=== PATIENT | male | born 1955 | race Caucasian/White ===

== ENCOUNTER 2018-09-04 09:50 | Inpatient (IN) | payer OTHER ==
[2018-09-03 22:15] VITALS: BP 113/69; PULSE 79; RESP 18
[~2018-09-04] VITALS: Ht 167.6 cm; Wt 84.6 kg
[2018-09-04] MEDS ORDERED: NITROGLYCERIN 2% 1 GM OINT PKT TD STA (09:55)
[2018-09-04] MEDS ORDERED: ASPIRIN 81 MG TAB PO STA (09:55)
[2018-09-04] MEDS: NITROGLYCERIN (SL) 0.4 MG TAB SL PRN (10:31)
--- NOTE | 2018-09-04 11:35 | ERD ---
ER Documentation Chief Complaint Chief Complaint INTERMITTENT CP X 2 DAYS WITH EKG CHANGES AT MD OFFICE HPI Patient is a 63-year-old male with previous heart attack who presents with chest pain. He said that it started yesterday afternoon after he was vacuuming. He feels it across his chest. It felt similar to previous heart attack. He went to the [facility] today and they sent him by ambulance to the ER for further work-up and admission. Upon review of old medical records this is the patient's first visit to the emergency department. ROS All systems reviewed and are negative except as per history of present illness. Allergies Allergies: Coded Allergies: No Known Allergy (Unverified , 09/04/18) PMhx/Soc History of Surgery: Yes (stent, hernia, abd) Anesthesia Reaction: No Hx Neurological Disorder: No Hx Respiratory Disorders: No Hx Cardiac Disorders: Yes (HTN) Hx Psychiatric Problems: Yes (anxiety) Hx Miscellaneous Medical Probl: No Hx Alcohol Use: Yes Hx Substance Use: Yes (marijuanna) Hx Tobacco Use: Yes Smoking Status: Former smoker FmHx Family History: No coronary disease Physical Exam Vitals Vital Signs Date Temp Pulse Resp B/P (MAP) Pulse Ox O2 O2 Flow FiO2 Time Delivery Rate 09/04/18 Nasal 3 10:29 Cannula 09/04/18 97.9 81 16 147/71 98 09:52 (96) Physical Exam Const: No acute distress Head: Atraumatic Eyes: Normal Conjunctiva ENT: Normal External Ears, Nose and Mouth. Neck: Full range of motion. No meningismus. Resp: Clear to auscultation bilaterally Cardio: Regular rate and rhythm, no murmurs Abd: Soft, non tender, non distended. Normal bowel sounds Skin: No petechiae or rashes Back: No midline or flank tenderness Ext: No cyanosis, or edema Neur: Awake and alert Psych: Normal Mood and Affect Result Diagram: 09/04/18 1004 09/04/18 1004 Results 24 hrs Laboratory Tests Test 09/04/18 10:04 White Blood Count 6.8 10^3/ul Red Blood Count 4.12 10^6/ul Hemoglobin 13.2 g/dl Hematocrit 38.7 % Mean Corpuscular Volume 93.9 fl Mean Corpuscular Hemoglobin 32.0 pg Mean Corpuscular Hemoglobin Concent 34.1 g/dl Red Cell Distribution Width 12.3 % Platelet Count 168 10^3/UL Mean Platelet Volume 9.6 fl Immature Granulocytes % 0.100 % Neutrophils % 58.5 % Lymphocytes % 27.3 % Monocytes % 11.7 % Eosinophils % 2.1 % Basophils % 0.3 % Nucleated Red Blood Cells % 0.0 /100WBC Immature Granulocytes # 0.010 10^3/ul Neutrophils # 4.0 10^3/ul Lymphocytes # 1.9 10^3/ul Monocytes # 0.8 10^3/ul Eosinophils # 0.1 10^3/ul Basophils # 0.0 10^3/ul Nucleated Red Blood Cells # 0.0 10^3/ul Sodium Level 138 mmol/L Potassium Level 4.8 mmol/L Chloride Level 103 mmol/L Carbon Dioxide Level 23 mmol/L Anion Gap 12 Blood Urea Nitrogen 47 mg/dl Creatinine 3.06 mg/dl Est Glomerular Filtrat Rate mL/min 21 mL/min Glucose Level 149 mg/dl Calcium Level 10.3 mg/dl Troponin I < 0.012 ng/ml Current Medications Medications Dose Sig/Noreen Start Time Status Last (Trade) Ordered Route PRN Stop Time Admin Dose Reason Admin Aspirin 162 mg ONCE STAT 09/04/18 DC 09/04/18 (Aspirin) PO 09:55 10:31 09/04/18 09:57 1 inch ONCE STAT 09/04/18 DC 09/04/18 Nitroglycerin TD 09:55 10:34 09/04/18 09:57 (Nitroglyceri n 2% Oint) 1 tab Q5M UP TO 3 09/04/18 09/04/18 Nitroglycerin DOSES PRN 10:00 10:31 SL .CHEST (Nitroglyceri PAIN n (Sl Tab) 0.4 Mg) Ondansetron 4 mg ER BRIDGE 09/04/18 HCl (Zofran PRN IV 12:00 Inj) NAUSEA/VOMITI 09/05/18 11:59 NG 650 mg ER BRIDGE 09/04/18 Acetaminophen PRN PO 12:00 (Tylenol .MILD PAIN 09/05/18 11:59 Tab) 1-3 OR TEMP Procedures/MDM EKG #1 read by me: Rate/Rhythm: Regular rate and rhythm at a normal rate Intervals: Normal Impression: No evidence of ischemia or arrhythmia EKG #2 read by me: Rate/Rhythm: Regular rate and rhythm at a normal rate Intervals: Normal Impression: No evidence of ischemia or arrhythmia Chest x-ray read by radiology. Patient is a 63-year-old male who presents with chest pain. He has a history of previous [place] and I am concerned for potential acute coronary syndrome. I doubt pneumonia, pneumothorax, pulmonary embolism, or aortic dissection. The patient will be admitted to the care of Dr. Louis to a telemetry observation bed. He was given aspirin nitroglycerin. Departure Diagnosis: Primary Impression: Chest pain Chest pain type: unspecified Qualified Codes: R07.9 - Chest pain, unspecified Condition: JOÃO Sheffield MD Sep 04, 2018 11:35
[2018-09-04] MEDS ORDERED: ONDANSETRON 4 MG INJ IV PRN ×2 (12:00→13:30)
[2018-09-04] MEDS ORDERED: ACETAMINOPHEN 325 MG TAB PO PRN ×2 (12:00→13:30)
[2018-09-04] MEDS ORDERED: ESCI5TAB PO (12:28)
[2018-09-04] MEDS ORDERED: METF500T24 PO (12:30)
[2018-09-04] MEDS ORDERED: GABA-528 PO (12:30)
[2018-09-04] MEDS ORDERED: RANO10002 PO (12:31)
[2018-09-04] MEDS ORDERED: INSU100I33 SC (12:31)
[2018-09-04] MEDS ORDERED: METO-319 PO (12:32)
[2018-09-04] MEDS ORDERED: ATOR-2 PO (12:32)
[2018-09-04] MEDS ORDERED: ASPI-817 PO (12:32)
[2018-09-04] MEDS ORDERED: LISI10TA2 PO (12:33)
[2018-09-04] MEDS ORDERED: ASPI-903 PO (12:33)
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
[2018-09-04] MEDS ORDERED: NACL 0.9% 3 ML SYG IV SCH (13:30)
[2018-09-04] MEDS ORDERED: HYDROCODONE/APAP (5/325) TAB PO PRN (13:30)
[2018-09-04] MEDS ORDERED: GLUCOSE GEL 15 GRAM TUBE PO PRN ×2 (14:00)
[2018-09-04] MEDS ORDERED: GLUCOSE GEL 15 GRAM TUBE BUCCAL PRN (14:00)
[2018-09-04] MEDS ORDERED: DEXTROSE 50% 50 ML SYRINGE IV PRN ×2 (14:00)
[2018-09-04] MEDS ORDERED: GLUCAGON 1 MG INJ IM PRN (14:00)
[2018-09-04] MEDS ORDERED: LORAZEPAM 2 MG INJ IV PRN (14:00)
[2018-09-04] MEDS: HEPARIN 5,000 UNIT/1 ML VIAL SC SCH (15:27)
--- NOTE | 2018-09-04 18:14 | CONS ---
DATE OF ADMISSION: 09/04/2018 DATE OF CONSULTATION: 09/04/2018 REASON FOR CONSULTATION: Chest pain, assess for acute coronary syndrome. REQUESTING PROVIDER: Jameel Horton from the hospitalist service. HISTORY OF PRESENT ILLNESS: Mr. Victoria is a very pleasant 63-year-old male with a history of hyperten bill, dyslipidemia, coronary artery disease status post prior PTCA and stent placement in 2014, prior myocardial infarction in 2015, who presents with complaints of substernal chest pain ongoing for my roximately 2 days, described as a sharp sensation radiating across his chest, both at rest and with e xertion. Upon arrival to the emergency department, temperature 97.9, blood pressure 147/71, pulse 81, respirat ory rate 16, satting 98%. The patient's labs: White blood cell count 6.8, hemoglobin 13.2, platelet count of 168; sodium 138, potassium 4.8, creatinine 3.0, BUN of 47; troponin negative, BNP 63. The patient underwent a chest x-ray revealing no acute cardiopulmonary abnormalities. The patient's elec trocardiogram revealed normal sinus rhythm at a rate of 81, normal axis, normal intervals, nonspecifi c ST and T-wave abnormalities. The patient is waiting to be admitted to the floor and during this ti me denies ongoing chest pain. PAST MEDICAL HISTORY: As above in the HPI. MEDICATIONS CURRENTLY IN THE HOSPITAL: 1. Aspirin 81 mg daily. 2. Lexapro 5 mg daily. 3. Toprol-XL 50 mg daily. 4. Ranexa 1000 mg daily. 5. Lipitor 80 mg at bedtime. 6. Neurontin 800 mg p.o. t.i.d. 7. Heparin 5000 subQ q.8. 8. Ativan p.r.n. ALLERGIES: NO KNOWN DRUG ALLERGIES. SOCIAL HISTORY: No current tobacco, quit x20 years. Social ETOH. No illicit drug use. FAMILY HISTORY: No history of sudden cardiac or early CAD. REVIEW OF SYSTEMS: As above in the HPI. CONSTITUTIONAL: No fevers or chills. PULMONARY: No current shortness of breath. CARDIOVASCULAR: Intermittent chest pain. GASTROINTESTINAL: No vomiting. GENITOURINARY: No hematuria. MUSCULOSKELETAL: Degenerative joint disease. PSYCHIATRIC: The patient denies depression. NEUROLOGIC: No documented history of CVA. PHYSICAL EXAMINATION: VITAL SIGNS: Temperature of 97.9, blood pressure 127/74, pulse 70, respiratory rate 18, satting 100% . GENERAL: The patient is alert, awake, in no acute distress. NECK: JVP approximately 9 cm of water. CHEST: Fair air movement throughout. HEART: Regular rate and rhythm. Normal S1, S2. A I/ systolic murmur. Nondisplaced PMI. ABDOMEN: Positive bowel sounds. Soft. EXTREMITIES: No edema, 1+ pulses bilateral posterior tibial. LABORATORY DATA: As above in the HPI. No further labs for my review at this time. IMAGING STUDIES: As above in the HPI. No further imaging studies for my review at this time. ELECTROCARDIOGRAM: Reveals normal sinus rhythm at a rate of 81, normal axis, normal intervals with T -wave flattening -- inferior and anterior leads. IMPRESSION: 1. Chest pain. Assess for acute coronary syndrome. 2. Abnormal electrocardiogram. Assess for acute coronary syndrome. 3. Hypertension. 4. Dyslipidemia. 5. History of percutaneous transluminal coronary angioplasty and stent placement. 6. Remote history of tobacco. 7. Renal failure. RECOMMENDATIONS: 1. At this time, we would admit patient to telemetry monitoring and complete the patient's rule out for myocardial infarction. 2. We will maintain the patient on aspirin at this time for prophylaxis for any further cardiovascul ar events. 3. We will continue the patient's Toprol for blood pressure control and the patient's antianginal me dication, Ranexa, but we will change Ranexa to b.i.d. dosing given half-life of the medication to imp rove efficacy. 4. We will check a 2D echo to further assess patient's ejection fraction, wall motion or any major a bnormalities. 5. We will continue to treat the patient's creatinine. 6. We will consider possible stress test in this patient to further assess possibility of significan t obstructive coronary disease lending to symptoms of chest pain and subsequent admit to the hospital . Thank you for allowing me to take part in the care of this patient. I will continue to follow along very closely with you, with further recommendations to be made as the patient progresses through his inpatient hospital clinical course. Dictated By: DARRIUS MORRIS/CHIVO Conf#: [id number] DID#: [id number] CC: JAMEEL HORTON BEAD STRINGER;*EndCC*
--- NOTE | 2018-09-04 18:18 | CONS ---
DATE OF ADMISSION: 09/04/2018 DATE OF CONSULTATION: 09/04/2018 TYPE OF CONSULTATION: Nephrology. REASON FOR CONSULTATION: Acute kidney injury. PROVIDER REQUESTING CONSULT: Jameel Horton NP HISTORY OF PRESENT ILLNESS: This is a 63-year-old male with past medical history of hypertension, hi story of anxiety disorder and history of coronary artery disease, who presents to [facility] with chest pain. The patient states that he has been having chest pain intermittently for 2 days. As a result of the symptoms not improving, the patient initially went to an outside clinic, was brought in by ambulance to the emergency room for further workup. Upon arrival, the patient was subsequently given nitroglycerin and aspirin and admitted to telemetry. The patient also had a chest x-ray that showed no acute findings. In terms of patient's renal history, the patient denies any prior history of having acute kidney inju ry or chronic kidney disease. The patient states he does have regular followup with his physician an d has never been told of any abnormal renal function per his memory. The patient denies any hemoptys is, hematemesis, hematochezia. PAST MEDICAL HISTORY: History of coronary artery disease, history of hypertension, history of diabet es, history of dyslipidemia. PAST SURGICAL HISTORY: Status post stent placement, status post hernia repair. FAMILY HISTORY: No family history of kidney disease. SOCIAL HISTORY: Does not actively do drugs. MEDICATIONS: Have been reviewed. REVIEW OF SYSTEMS: A 14-point review of systems conducted. Pertinent positives stated in HPI, other harrison negative. PHYSICAL EXAMINATION: VITAL SIGNS: Blood pressure is 117/68, respiration 18, pulse 82, temperature 98.6. HEENT: Head is normocephalic. NECK: Supple. HEART: Regular rate. LUNGS: Show diminished breath sounds at the base. ABDOMEN: Soft, nontender to palpation without rebound or guarding. EXTREMITIES: Negative for clubbing, cyanosis. No edema. DERMATOLOGIC: No rashes. MUSCULOSKELETAL: No joint effusion. NEUROLOGIC: No focal deficits. LABORATORY DATA: Have been reviewed. ASSESSMENT AND PLAN: This is a 63-year-old male who presents for: 1. Renal failure, unclear if this is nonoliguric kidney injury versus chronic kidney disease. The p atient's baseline creatinine is unknown. Possible etiologies of acute kidney injury include hemodyna mics, JAILYN inhibitor effect. Recommendation at this point is to do a full evaluation. We will check a UA with microanalysis, check urine electrolytes, calculate a FENa and quantify the patient's protei ahsan. We will check a renal ultrasound to evaluate renal parenchyma. We would discontinue JAILYN inhi bitor and ARB at this time. The patient will be given a fluid challenge. We will otherwise continue supportive care, renally dose all meds, avoid nephrotoxins. 2. Mild anemia. Monitor hemoglobin and hematocrit. 3. Mineral bone disorder. Monitor calcium and phosphorus levels. 4. Chest pain. The patient is being ruled out for acute coronary syndrome. Continue to monitor tel emetry. Continue to check serial troponins. Continue current management. 5. Hypertension. Monitor blood pressure closely. 6. Diabetes. Continue current insulin regimen. 7. Dyslipidemia. Continue statin therapy. 8. History of coronary artery disease with PCI. Continue current treatment. Thank you, Jameel, for this very interesting consult. It will be a pleasure to follow patient with sintia pina throughout the hospital course. Dictated By: MARU GONZALEZ DO NR/NTS Conf#: [id number] DID#: [id number] CC: DARRIUS NIELSEN MD; JOÃO HUITRON MD;*EndCC*
[2018-09-04 22:06] VITALS: PULSE 81
[2018-09-04] MEDS: GABAPENTIN 400 MG CAP PO SCH (22:30)
[2018-09-04] MEDS: ATORVASTATIN 80 MG TAB PO SCH (22:30)
[2018-09-04] MEDS: INSULIN ASPART [NOVOLOG] 3 ML PEN SC SCH ×2 (22:30)
[2018-09-04] MEDS: INSULIN GLARGINE [LANTus] (100 UNITS/ML) SYG SC SCH (22:30)
[2018-09-04 22:33] VITALS: Ht 167.6 cm; Wt 84.6 kg
[2018-09-04 23:53] VITALS: BP 116/69; PULSE 77; RESP 18
[2018-09-05] VITALS (10 sets, daily range): BP systolic 108–129; BP diastolic 61–77; PULSE 57–91; RESP 20–22
[2018-09-05] MEDS: HEPARIN 5,000 UNIT/1 ML VIAL SC SCH ×4 (01:21→22:08)
[2018-09-05] MEDS: INSULIN ASPART [NOVOLOG] 3 ML PEN SC SCH ×7 (07:50→20:28)
[2018-09-05] MEDS: RANOLAZINE (SR) 500 MG TAB PO SCH ×2 (08:53→20:25)
[2018-09-05] MEDS: ESCITALOPRAM 10 MG TAB PO SCH (08:54)
[2018-09-05] MEDS: ASPIRIN 81 MG TAB PO SCH (08:54)
[2018-09-05] MEDS: GABAPENTIN 400 MG CAP PO SCH ×3 (08:54→20:25)
[2018-09-05] MEDS: DOCUSATE SODIUM 100 MG CAP PO SCH ×2 (08:54→20:25)
[2018-09-05] MEDS: METOPROLOL (XL) 50 MG TAB PO SCH (08:56)
[2018-09-05] MEDS ORDERED: DEXTROSE 5%-0.45% NACL 1,000 ML IV SCH (09:00)
[2018-09-05] MEDS ORDERED: RANOLAZINE (SR) 500 MG TAB PO SCH (09:00)
--- NOTE | 2018-09-05 09:16 | PN ---
DATE: 09/05/2018 SUBJECTIVE: The patient is stable. No events noted overnight. No fevers, chills, nausea or vomitin g. OBJECTIVE: VITAL SIGNS: Blood pressure is 109/61, pulse 86, respirations 22, temperature 98.6. HEENT: Head is normocephalic. NECK: Supple. HEART: Regular rate. LUNGS: Show diminished breath sounds at the base. ABDOMEN: Soft, nontender to palpation without rebound or guarding. EXTREMITIES: Negative for clubbing, cyanosis, no edema. DERMATOLOGIC: No rashes. MUSCULOSKELETAL: No joint effusion. NEUROLOGIC: No change in exam. MEDICATIONS: Reviewed. LABORATORY DATA: Reviewed. IMAGING STUDIES: Reviewed. ASSESSMENT AND PLAN: 1. Nonoliguric acute kidney injury with unknown baseline creatinine. Etiology of acute kidney injur y is presumed to be secondary to volume depletion, hemodynamics. The patient's renal function has im proved with supportive care. Renal ultrasound was reviewed, no evidence of obstruction. Recommendat ion at this point is to continue current treatment plan, supportive care, renally dose all medication s and avoid nephrotoxins. We will continue to follow up urinalysis once available. 2. Anemia. Continue to monitor hemoglobin and hematocrit levels. 3. Mineral bone disorder, monitor calcium and phosphorus levels. 4. Chest pain. The patient is being ruled out for acute coronary syndrome. Continue to monitor. C ontinue to check serial troponins. 5. Hypertension. Continue current blood pressure regimen. 6. Diabetes. Continue current insulin regimen. 7. Dyslipidemia. Continue statin therapy. Dictated By: MARU GONZALEZ DO NR/NTS Conf#: [id number] DID#: [id number] CC: DARRIUS NIELSEN MD; ESA BURRELL MD;*EndCC*
[2018-09-05] MEDS: NITROGLYCERIN (SL) 0.4 MG TAB SL PRN (10:26)
[2018-09-05] MEDS ORDERED: REGADENOSON 0.4 MG/5 ML SYG ONE (11:00)
--- NOTE | 2018-09-05 12:13 | CONS ---
Assessment/Plan Assessment/Plan Hospital Course (Demo Recall) IMPRESSION: 1. Chest pain. Assess for acute coronary syndrome.-neg trop x 3 2. Abnormal electrocardiogram. Assess for acute coronary syndrome. 3. Hypertension. 4. Dyslipidemia. 5. History of percutaneous transluminal coronary angioplasty and stent placement. 6. Remote history of tobacco. 7. Renal failure. Recc: -Tele -Continue asa/BB/statin/ranexa -Lexiscan stress test today -f/u echo Consultation Date/Type/Reason Admit Date/Time Sep 04, 2018 at 11:32 Initial Consult Date 09/04/18 Type of Consult Cardiology Reason for Consultation chest pain Requesting Provider: FIORELLA HENRIQUEZ NP Date/Time of Note DATE: 09/05/18 TIME: 12:09 Exam/Review of Systems Vital Signs Vitals Vital Signs Date Temp Pulse Resp B/P (MAP) Pulse Ox O2 O2 Flow FiO2 Time Delivery Rate 09/05/18 86 08:00 09/05/18 98.6 22 109/61 96 Room Air 07:11 (77) 09/04/18 3 10:29 Exam Exam Review of Systems: CONSTITUTIONAL: No fevers, chills. PULMONARY: No sob CARDIOVASCULAR: intermittent chest pain GASTROINTESTINAL: No nausea/vomiting. GENITOURINARY: No hematuria/dysuria. MUSCULOSKELETAL: No myagias/arthalgias. PSYCHIATRIC: The patient denies depression. NEUROLOGIC: No weakness Constitutional: alert, oriented Psych: no complaints Head: normocephalic ENMT: mucosa pink and moist Neck: supple, jvd (9 cm water) Respiratory: diminished breath sounds (at bases/B) Cardiovascular: regular rate and rhythm Gastrointestinal: soft, non-tender Musculoskeletal: muscle tone (normal) Extremities: edema (none) Neurological: other (No focal deficits) Labs Result Diagram: 09/05/18 0538 09/05/18 0538 Results 24hrs Laboratory Tests Test 09/04/18 16:34 09/04/18 21:46 09/05/18 05:38 09/05/18 07:33 Creatine Kinase 91 82 Creatine Kinase 0.6 0.7 Index Creatinine Kinase MB 0.59 0.54 (Mass) Troponin I < 0.012 < 0.012 < 0.012 White Blood Count 6.6 Red Blood Count 4.24 L Hemoglobin 13.2 L Hematocrit 38.7 L Mean Corpuscular 91.3 Volume Mean Corpuscular 31.1 Hemoglobin Mean Corpuscular 34.1 Hemoglobin Concent Red Cell 12.4 Distribution Width Platelet Count 171 Mean Platelet Volume 10.0 Immature 0.500 H Granulocytes % Neutrophils % 63.7 Lymphocytes % 22.0 Monocytes % 11.1 H Eosinophils % 2.1 Basophils % 0.6 Nucleated Red Blood 0.0 Cells % Immature 0.030 Granulocytes # Neutrophils # 4.2 Lymphocytes # 1.5 Monocytes # 0.7 Eosinophils # 0.1 Basophils # 0.0 Nucleated Red Blood 0.0 Cells # Sodium Level 137 Potassium Level 5.3 H Chloride Level 105 Carbon Dioxide Level 23 Anion Gap 9 Blood Urea Nitrogen 39 H Creatinine 1.01 # Est Glomerular > 60 Filtrat Rate mL/min Glucose Level 170 Calcium Level 9.7 Phosphorus Level 3.6 Magnesium Level 1.7 Total Bilirubin 1.1 Direct Bilirubin 0.00 Indirect Bilirubin 1.1 Aspartate Amino 26 Transf (AST/SGOT) Alanine 32 Aminotransferase (AL T/SGPT) Alkaline Phosphatase 90 Total Protein 7.6 Albumin 4.3 Globulin 3.30 H Albumin/Globulin 1.30 Ratio Triglycerides Level 304 H Cholesterol Level 159 LDL Cholesterol, 53 Calculated HDL Cholesterol 45 Cholesterol/HDL 3.5 Ratio Bedside Glucose 166 Medications Medications Current Medications Nitroglycerin (Nitroglycerin (Sl Tab) 0.4 Mg) 1 tab Q5M UP TO 3 DOSES PRN SL .CHEST PAIN Last administered on 09/05/18at 10:26; Admin Dose 1 TAB; Start 09/04/18 at 10:00 IV Flush (NS 3 ml) 3 ml PER PROTOCOL IV ; Start 09/04/18 at 13:30 Ondansetron HCl (Zofran Inj) 4 mg Q6H PRN IV NAUSEA/VOMITING; Start 09/04/18 at 13:30 Aspirin (Aspirin) 81 mg DAILY PO Last administered on 09/05/18at 08:54; Admin Dose 81 MG; Start 09/05/18 at 09:00 Acetaminophen (Tylenol Tab) 650 mg Q6H PRN PO .PAIN 1-3 OR TEMP; Start 09/04/18 at 13:30 Acetaminophen/ Hydrocodone Bitart ([place] (5/325)) 1 tab Q6H PRN PO .PAIN 4-6; Start 09/04/18 at 13:30 Heparin Sodium (Porcine) (Heparin (5000 Units/1ml)) 5,000 unit Q8 SC Last administered on 09/05/18at 01:21; Admin Dose 5,000 UNIT; Start 09/04/18 at 14:00 Lorazepam (Ativan) 1 mg Q2H PRN IV Anxiety; Start 09/04/18 at 14:00 Atorvastatin Calcium (Lipitor) 80 mg QHS PO ; Start 09/04/18 at 21:00 Escitalopram Oxalate (Lexapro) 5 mg DAILY PO Last administered on 09/05/18at 08:54; Admin Dose 5 MG; Start 09/05/18 at 09:00 Gabapentin (Neurontin) 800 mg TID PO Last administered on 09/05/18at 08:54; Admin Dose 800 MG; Start 09/04/18 at 21:00 Metoprolol Succinate (Toprol Xl) 50 mg DAILY PO Last administered on 09/05/18at 08:56; Admin Dose 50 MG; Start 09/05/18 at 09:00 Insulin Glargine (Lantus) 13 units DAILY@2000 SC ; Start 09/04/18 at 20:00 Insulin Aspart (Novolog Insulin Pen) 4 unit WITH MEALS SC ; Start 09/04/18 at 18:00 Insulin Aspart (Novolog Insulin Pen) NOVOLOG *MILD* ALGORITHM WITH MEALS BEDTIME SC ; Start 09/04/18 at 18:00 Miscellaneous Information 1 ea NOTE XX ; Start 09/04/18 at 14:00 Glucose (Glutose) 15 gm Q15M PRN PO DECREASED GLUCOSE; Start 09/04/18 at 14:00 Glucose (Glutose) 22.5 gm Q15M PRN PO DECREASED GLUCOSE; Start 09/04/18 at 14:00 Dextrose (D50w Syringe) 25 ml Q15M PRN IV DECREASED GLUCOSE; Start 09/04/18 at 14:00 Dextrose (D50w Syringe) 50 ml Q15M PRN IV DECREASED GLUCOSE; Start 09/04/18 at 14:00 Glucagon (Glucagen) 1 mg Q15M PRN IM DECREASED GLUCOSE; Start 09/04/18 at 14:00 Glucose (Glutose) 15 gm Q15M PRN BUCCAL DECREASED GLUCOSE; Start 09/04/18 at 14:00 Ranolazine (Ranexa) 1,000 mg BID PO Last administered on 09/05/18at 08:53; Admin Dose 1,000 MG; Start 09/05/18 at 09:00 Docusate Sodium (Colace) 100 mg BID PO Last administered on 09/05/18at 08:54; Admin Dose 100 MG; Start 09/05/18 at 09:00 Dextrose/Sodium Chloride 1,000 ml @ 40 mls/hr Q24H IV Last administered on 09/05/18at 09:42; Admin Dose 40 MLS/HR; Start 09/05/18 at 09:00 Famotidine (Pepcid) 20 mg BID PO ; Start 09/05/18 at 11:00 DARRIUS NIELSEN Sep 05, 2018 12:13
[2018-09-05] MEDS: FAMOTIDINE 20 MG TAB PO SCH ×2 (13:03→20:25)
--- NOTE | 2018-09-05 13:05 | RADRPT ---
Vent Rate: 78 bpm RR Interval: 764 msec NV Interval: 137 msec QRS Duration: 94 msec QT Interval: 366 msec QTC Interval: 419 msec P-R-T [place]: 47 - 32 - 47 degrees Sinus rhythm...normal P axis, V-rate 50- 99 Electronically Signed By: Isak Nye
--- NOTE | 2018-09-05 14:11 | PN ---
Date/Time of Note Date/Time of Note DATE: 09/05/18 TIME: 14:03 Assessment/Plan VTE Prophylaxis Risk score (from Ns)>0 risk: 5 SCD applied (from Ns): Yes Pharmacological prophylaxis: heparin Lines/Catheters IV Catheter Type (from Nrsg): Saline Lock Assessment/Plan Assessment/Plan 1. Acute chest pain - Stress test this am showed "small size predominantly nonreversible perfusion d efect in the inferolateral wall" - serial trops negative - Cardiology on board and appreciate recommendations - ECHO results pending 2. HTN - stable - continue current medications 3. Diabetes mellitus type II. - ISS and accuchecks - holding home PO medications - A1c noted 4. Dyslipidemia - continue statin 5. CAD, status post PCI in 2014. - continue aspirin, statin, BB 6. Acute kidney injury- resolved - Nephrology consultation appreciated - avoid nephrotoxic agents - Renal US negative for abnormalities 7. Disposition - Awaiting ECHO results and further Cardiology recommendations based on stress results Result Diagram: 09/05/18 0538 09/05/18 0538 Results 24hrs Laboratory Tests Test 09/04/18 16:34 09/04/18 21:46 09/05/18 05:38 09/05/18 07:33 Creatine Kinase 91 82 Creatine Kinase 0.6 0.7 Index Creatinine Kinase MB 0.59 0.54 (Mass) Troponin I < 0.012 < 0.012 < 0.012 White Blood Count 6.6 Red Blood Count 4.24 L Hemoglobin 13.2 L Hematocrit 38.7 L Mean Corpuscular 91.3 Volume Mean Corpuscular 31.1 Hemoglobin Mean Corpuscular 34.1 Hemoglobin Concent Red Cell 12.4 Distribution Width Platelet Count 171 Mean Platelet Volume 10.0 Immature 0.500 H Granulocytes % Neutrophils % 63.7 Lymphocytes % 22.0 Monocytes % 11.1 H Eosinophils % 2.1 Basophils % 0.6 Nucleated Red Blood 0.0 Cells % Immature 0.030 Granulocytes # Neutrophils # 4.2 Lymphocytes # 1.5 Monocytes # 0.7 Eosinophils # 0.1 Basophils # 0.0 Nucleated Red Blood 0.0 Cells # Sodium Level 137 Potassium Level 5.3 H Chloride Level 105 Carbon Dioxide Level 23 Anion Gap 9 Blood Urea Nitrogen 39 H Creatinine 1.01 # Est Glomerular > 60 Filtrat Rate mL/min Glucose Level 170 Calcium Level 9.7 Phosphorus Level 3.6 Magnesium Level 1.7 Total Bilirubin 1.1 Direct Bilirubin 0.00 Indirect Bilirubin 1.1 Aspartate Amino 26 Transf (AST/SGOT) Alanine 32 Aminotransferase (AL T/SGPT) Alkaline Phosphatase 90 Total Protein 7.6 Albumin 4.3 Globulin 3.30 H Albumin/Globulin 1.30 Ratio Triglycerides Level 304 H Cholesterol Level 159 LDL Cholesterol, 53 Calculated HDL Cholesterol 45 Cholesterol/HDL 3.5 Ratio Bedside Glucose 166 Test 09/05/18 12:59 Bedside Glucose 170 Subjective 24 Hr Interval Summary Free Text/Dictation Patient still admits to some chest discomfort in epigastric area that is nonradiating. Has hx GERD in the past as well. Denies any N/V/SOB/LOC. Exam/Review of Systems Exam Vitals Vital Signs Date Temp Pulse Resp B/P (MAP) Pulse Ox O2 O2 Flow FiO2 Time Delivery Rate 09/05/18 72 12:00 09/05/18 98.6 22 109/61 96 Room Air 07:11 (77) 09/04/18 3 10:29 Exam General: Patient currently lying in bed in no acute distress Neck: Supple Chest: Nontender Lungs: Clear to auscultation bilaterally no crackles rales or wheezing Heart: Normal S1-S2, Regular rhythm and rate. No murmur, S3, or S4 Abdomen: Soft , nontender, nondistended , bowel sounds are present. No guarding no rebound tenderness Extremities: Normal to inspection, no edema no cyanosis Results Results 24hrs Laboratory Tests Test 09/04/18 16:34 09/04/18 21:46 09/05/18 05:38 09/05/18 07:33 Creatine Kinase 91 82 Creatine Kinase 0.6 0.7 Index Creatinine Kinase MB 0.59 0.54 (Mass) Troponin I < 0.012 < 0.012 < 0.012 White Blood Count 6.6 Red Blood Count 4.24 L Hemoglobin 13.2 L Hematocrit 38.7 L Mean Corpuscular 91.3 Volume Mean Corpuscular 31.1 Hemoglobin Mean Corpuscular 34.1 Hemoglobin Concent Red Cell 12.4 Distribution Width Platelet Count 171 Mean Platelet Volume 10.0 Immature 0.500 H Granulocytes % Neutrophils % 63.7 Lymphocytes % 22.0 Monocytes % 11.1 H Eosinophils % 2.1 Basophils % 0.6 Nucleated Red Blood 0.0 Cells % Immature 0.030 Granulocytes # Neutrophils # 4.2 Lymphocytes # 1.5 Monocytes # 0.7 Eosinophils # 0.1 Basophils # 0.0 Nucleated Red Blood 0.0 Cells # Sodium Level 137 Potassium Level 5.3 H Chloride Level 105 Carbon Dioxide Level 23 Anion Gap 9 Blood Urea Nitrogen 39 H Creatinine 1.01 # Est Glomerular > 60 Filtrat Rate mL/min Glucose Level 170 Calcium Level 9.7 Phosphorus Level 3.6 Magnesium Level 1.7 Total Bilirubin 1.1 Direct Bilirubin 0.00 Indirect Bilirubin 1.1 Aspartate Amino 26 Transf (AST/SGOT) Alanine 32 Aminotransferase (AL T/SGPT) Alkaline Phosphatase 90 Total Protein 7.6 Albumin 4.3 Globulin 3.30 H Albumin/Globulin 1.30 Ratio Triglycerides Level 304 H Cholesterol Level 159 LDL Cholesterol, 53 Calculated HDL Cholesterol 45 Cholesterol/HDL 3.5 Ratio Bedside Glucose 166 Test 09/05/18 12:59 Bedside Glucose 170 Medications Medication Current Medications Nitroglycerin (Nitroglycerin (Sl Tab) 0.4 Mg) 1 tab Q5M UP TO 3 DOSES PRN SL .CHEST PAIN Last administered on 09/05/18at 10:26; Admin Dose 1 TAB; Start 09/04/18 at 10:00 IV Flush (NS 3 ml) 3 ml PER PROTOCOL IV ; Start 09/04/18 at 13:30 Ondansetron HCl (Zofran Inj) 4 mg Q6H PRN IV NAUSEA/VOMITING; Start 09/04/18 at 13:30 Aspirin (Aspirin) 81 mg DAILY PO Last administered on 09/05/18at 08:54; Admin Dose 81 MG; Start 09/05/18 at 09:00 Acetaminophen (Tylenol Tab) 650 mg Q6H PRN PO .PAIN 1-3 OR TEMP; Start 09/04/18 at 13:30 Acetaminophen/ Hydrocodone Bitart ([place] (5/325)) 1 tab Q6H PRN PO .PAIN 4-6; Start 09/04/18 at 13:30 Heparin Sodium (Porcine) (Heparin (5000 Units/1ml)) 5,000 unit Q8 SC Last administered on 09/05/18at 13:32; Admin Dose 5,000 UNIT; Start 09/04/18 at 14:00 Lorazepam (Ativan) 1 mg Q2H PRN IV Anxiety; Start 09/04/18 at 14:00 Atorvastatin Calcium (Lipitor) 80 mg QHS PO ; Start 09/04/18 at 21:00 Escitalopram Oxalate (Lexapro) 5 mg DAILY PO Last administered on 09/05/18 08:54; Admin Dose 5 MG; Start 09/05/18 at 09:00 Gabapentin (Neurontin) 800 mg TID PO Last administered on 09/05/18 13:27; Admin Dose 800 MG; Start 09/04/18 at 21:00 Metoprolol Succinate (Toprol Xl) 50 mg DAILY PO Last administered on 09/05/18 08:56; Admin Dose 50 MG; Start 09/05/18 at 09:00 Insulin Glargine (Lantus) 13 units DAILY@2000 SC ; Start 09/04/18 at 20:00 Insulin Aspart (Novolog Insulin Pen) 4 unit WITH MEALS SC Last administered on 09/05/18 13:06; Admin Dose 4 UNIT; Start 09/04/18 at 18:00 Insulin Aspart (Novolog Insulin Pen) NOVOLOG *MILD* ALGORITHM WITH MEALS BEDTIME SC Last administered on 09/05/18 13:06; Admin Dose 1 UNIT; Start 09/04/18 at 18:00 Miscellaneous Information 1 ea NOTE XX ; Start 09/04/18 at 14:00 Glucose (Glutose) 15 gm Q15M PRN PO DECREASED GLUCOSE; Start 09/04/18 at 14:00 Glucose (Glutose) 22.5 gm Q15M PRN PO DECREASED GLUCOSE; Start 09/04/18 at 14:00 Dextrose (D50w Syringe) 25 ml Q15M PRN IV DECREASED GLUCOSE; Start 09/04/18 at 14:00 Dextrose (D50w Syringe) 50 ml Q15M PRN IV DECREASED GLUCOSE; Start 09/04/18 at 14:00 Glucagon (Glucagen) 1 mg Q15M PRN IM DECREASED GLUCOSE; Start 09/04/18 at 14:00 Glucose (Glutose) 15 gm Q15M PRN BUCCAL DECREASED GLUCOSE; Start 09/04/18 at 14:00 Ranolazine (Ranexa) 1,000 mg BID PO Last administered on 09/05/18at 08:53; Admin Dose 1,000 MG; Start 09/05/18 at 09:00 Docusate Sodium (Colace) 100 mg BID PO Last administered on 09/05/18 08:54; Admin Dose 100 MG; Start 09/05/18 at 09:00 Dextrose/Sodium Chloride 1,000 ml @ 40 mls/hr Q24H IV Last administered on 09/05/18at 09:42; Admin Dose 40 MLS/HR; Start 09/05/18 at 09:00 Famotidine (Pepcid) 20 mg BID PO Last administered on 09/05/18at 13:03; Admin Dose 20 MG; Start 09/05/18 at 11:00 QUYNH REEVES MD Sep 05, 2018 14:11
--- NOTE | 2018-09-05 14:37 | CARRPT ---
DATE OF PROCEDURE: 09/04/2018 TYPE OF PROCEDURE: Lexiscan Cardiolite stress test, electrocardiogram portion. REASON FOR STRESS TESTING: Chest pain, assess for ischemia. BASELINE VITAL SIGNS AND ELECTROCARDIOGRAM: Pulse 75, blood pressure 121/72. Electrocardiogram reve als normal sinus rhythm, rate of 75, normal axis, normal intervals, inferior T-wave inversion. PROCEDURE IN DETAILS: The patient underwent standard Lexiscan infusion over 10 seconds followed by r adiolabeled tracer. The patient's test was stopped due to completion of protocol. Maximal blood pre ssure during the test was 164/95. Maximum heart rate during test was 105. ELECTROCARDIOGRAM FINDINGS: The patient did not develop any new Lexiscan-induced ST or T-wave change s from baseline abnormalities, no documented PVCs. SYMPTOMS: The patient had complaints of shortness of breath, mild abdominal discomfort during stress testing which resolved in recovery. IMPRESSION: 1. No Lexiscan-induced ST or T-wave changes from baseline abnormalities diagnostic of cardiac ischem ia. 2. No complaints of chest pain during stress testing, but positive shortness of breath and nausea wh ich resolved in recovery. 3. No documented premature ventricular contractions during stress testing. 4. Report of nuclear images to follow in separate dictation. Dictated By: DARRIUS MORRIS/NTS Conf#: [id number] DID#: [id number] CC: ESA BURRELL MD; FIORELLA HENRIQUEZ NP; QUYNH REEVES MD;*End*
--- NOTE | 2018-09-05 18:41 | RADRPT ---
Echocardiogram Report Patient Name: LARISA FRENCHPatient ID: [id number] : 1955 (63y 1m)Study Date: 09/05/2018 8:15:18 AM Gender: Reinier #: [id number] Tech: PatrickEdy Haywood [facility] Location: [facility] Ref.Physician: FIORELLA HENRIQUEZ Height(Cm): BSA: Weight(Kg): Quality: Technically Difficult StudyOrder Physician: FIORELLA HENRIQUEZ Account #: Procedures: Echocardiographic Report: Transthoracic echocardiogram with complete 2D, M-Mode, and doppler examination. Indications: Chest Pain. Measurements: 2D/M Mode Doppler Measurement Value Normal Range Measurement Value Normal Range LVIDd 2D 4.5 [ 4.2 - 5.8 ] cm AV Peak Edvin 1.3 [ 100.0 - 170.0 ] cm/sec LVIDs 2D 2.8 [ 2.5 - 4.0 ] cm AV Peak PG 7.0 [ 2.0 - 9.0 ] mmHg LVPWd 2D 1.1 [ 0.6 - 1.0 ] cm LVOT Peak Edvin 0.9 [ 70.0 - 110.0 ] cm/sec IVSd 2D 1.2 [ 0.6 - 1.0 ] cm LVOT Peak PG 4.0 [ 2.0 - 6.0 ] mmHg AoR Diam 2D 2.9 [ 2.6 - 3.4 ] cm MV E Peak Edvin 0.5 [ 60.0 - 130.0 ] cm/sec EDV 2D 93.4 [ 62.0 - 150.0 ] ml MV A Peak Edvin 0.8 [ 100.0 - 120.0 ] cm/sec ESV 2D 28.8 [ 21.0 - 61.0 ] ml MV E/A 0.7 [ 0.8 - 1.5 ] ratio EF 2D 69.2 [ 52.0 - 72.0 ] percent MV Decel Time 268 [ 104 - 258 ] msec LA Dimen 2D 3.3 [ 3.0 - 4.0 ] cm Lat E` Edvin 0.1 [ 10.0 - 15.0 ] cm/sec Lateral E/E` 6.7 [ 1.0 - 2.0 ] ratio MV E/A 0.7 [ 0.8 - 1.5 ] ratio TR Peak Edvin 2.5 [ 100.0 - 280.0 ] cm/sec TR Peak PG 26.0 mmHg RVSP 29.0 [ 10.0 - 36.0 ] mmHg RA Pressure 3.0 mmHg Findings: Left Ventricle: Normal left ventricular systolic function. Normal left ventricular cavity size. Mild concentric left ventricular hypertrophy. Ejection fraction is visually estimated at 55-60 %. Tissue Doppler/Mitral Doppler indices are consistent with impaired relaxation (Stage I diastolic dysfunction). Right Ventricle: Normal right ventricular size. Normal right ventricular systolic function. Left Atrium: The left atrium is normal in size. Right Atrium: The right atrium is normal in size. Mitral Valve: Normal appearance and function of the mitral valve with trace physiologic regurgitation. Aortic Valve: Normal appearance of the aortic valve. No significant aortic stenosis or insufficiency. Tricuspid Valve: Normal appearance of the tricuspid valve. The estimated Peak RVSP is 29 mmHg. There is trace tricuspid regurgitation. Pulmonic Valve: Normal pulmonic valve appearance. Pericardium: Normal pericardium with no significant pericardial effusion. Aorta: Normal aortic root. IVC: Normal size and normal respiratory collapse consistent with normal right atrial pressure. Conclusions: Normal left ventricular systolic function. Normal left ventricular cavity size. Mild concentric left ventricular hypertrophy. Ejection fraction is visually estimated at 55-60 %. Tissue Doppler/Mitral Doppler indices are consistent with impaired relaxation (Stage I diastolic dysfunction). Normal appearance and function of the mitral valve with trace physiologic regurgitation. Normal appearance of the tricuspid valve. The estimated Peak RVSP is 29 mmHg. There is trace tricuspid regurgitation. Electronically Signed By: Pankaj Castillo 2018-09-05 18:41:21 PDT
[2018-09-05] MEDS: ATORVASTATIN 80 MG TAB PO SCH (20:25)
[2018-09-05] MEDS: INSULIN GLARGINE [LANTus] (100 UNITS/ML) SYG SC SCH (20:29)
[2018-09-06] VITALS (10 sets, daily range): BP systolic 117–155; BP diastolic 56–78; PULSE 67–86; RESP 16–20
[2018-09-06] MEDS: HEPARIN 5,000 UNIT/1 ML VIAL SC SCH ×2 (06:09→13:48)
[2018-09-06] MEDS: DOCUSATE SODIUM 100 MG CAP PO SCH (08:12)
[2018-09-06] MEDS: ASPIRIN 81 MG TAB PO SCH (08:12)
[2018-09-06] MEDS: GABAPENTIN 400 MG CAP PO SCH ×2 (08:12→13:43)
[2018-09-06] MEDS: ESCITALOPRAM 10 MG TAB PO SCH (08:12)
[2018-09-06] MEDS: RANOLAZINE (SR) 500 MG TAB PO SCH (08:12)
[2018-09-06] MEDS: METOPROLOL (XL) 50 MG TAB PO SCH (08:13)
[2018-09-06] MEDS: INSULIN ASPART [NOVOLOG] 3 ML PEN SC SCH ×4 (08:19→13:06)
[2018-09-06] MEDS: FAMOTIDINE 20 MG TAB PO SCH (09:00)
--- NOTE | 2018-09-06 09:49 | PN ---
DATE: 09/06/2018 SUBJECTIVE: The patient is stable. No events overnight. OBJECTIVE: VITAL SIGNS: Blood pressure is 117/68, pulse 67, respirations 20, temperature 97.7. HEENT: Head is normocephalic. NECK: Supple. HEART: Regular rate. LUNGS: Show diminished breath sounds at the base. ABDOMEN: Soft, nontender to palpation without rebound or guarding. EXTREMITIES: Negative for clubbing, cyanosis, no edema. DERMATOLOGIC: No rashes. MUSCULOSKELETAL: No joint effusion. NEUROLOGIC: No change in exam. MEDICATIONS: The patient's medications have been reviewed. LABORATORY DATA: The laboratory data has been reviewed. ASSESSMENT AND PLAN: 1. Nonoliguric acute kidney injury with unknown baseline creatinine. Etiology of ELLI is secondary t o hemodynamics, volume depletion. Renal function has improved with supportive care. We will continu e current treatment plan, renally dose all meds, avoid nephrotoxins. 2. Anemia. Monitor hemoglobin and hematocrit levels. 3. Mild hyperkalemia, resolved. 4. Chest pain. The patient has been ruled out for acute coronary syndrome, status post stress test with reversible defect. Continue to monitor. Follow up with cardiology. 5. Hypertension. Continue current blood pressure regimen. 6. Diabetes. Continue current insulin regimen. 7. Dyslipidemia. Continue statin therapy. Dictated By: MARU GONZALEZ DO NR/NTS Conf#: [id number] DID#: [id number] CC: DARRIUS NIELSEN MD; QUYNH REEVES MD; ESA BURRELL MD;*EndCC*
--- NOTE | 2018-09-06 12:21 | PN ---
Date/Time of Note Date/Time of Note DATE: 09/06/18 TIME: 12:13 Assessment/Plan VTE Prophylaxis Risk score (from Nsg)>0 risk: 3 SCD applied (from Nsg): Yes Pharmacological prophylaxis: NA/contraindicated Pharm contraindication: low risk/ambulating Lines/Catheters IV Catheter Type (from Nrsg): Saline Lock Assessment/Plan Assessment/Plan 1. Acute chest pain- improved - most likely GI etiology - Stress test this am showed "small size predominantly nonreversible perfusion defect in the inferolateral wall" - serial trops negative - Cardiology on board and appreciate recommendations 2. HTN - stable - continue current medications 3. Diabetes mellitus type II. - ISS and accuchecks - holding home PO medications - A1c noted 4. Dyslipidemia - continue statin 5. CAD, status post PCI in 2014. - continue aspirin, statin, BB 6. Acute kidney injury- resolved - Nephrology consultation appreciated - avoid nephrotoxic agents - Renal US negative for abnormalities 7. Disposition - Once cleared by cardiology, will d/c home Result Diagram: 09/05/18 0538 09/06/18 0527 Results 24hrs Laboratory Tests Test 09/05/18 12:59 09/05/18 17:01 09/05/18 20:23 09/05/18 21:42 Bedside Glucose 170 238 H 429 *H Glucose Level 111 # Test 09/06/18 02:17 09/06/18 05:27 09/06/18 07:57 Bedside Glucose 195 171 Sodium Level 138 Potassium Level 4.9 Chloride Level 104 Carbon Dioxide Level 25 Anion Gap 9 Blood Urea Nitrogen 35 H Creatinine 0.89 Est Glomerular > 60 Filtrat Rate mL/min Glucose Level 131 Calcium Level 9.8 Phosphorus Level 3.4 Magnesium Level 1.9 Subjective 24 Hr Interval Summary Free Text/Dictation Patient states pain has improved in epigastric area and denies any chest pain or N/V. Exam/Review of Systems Exam Vitals Vital Signs Date Temp Pulse Resp B/P (MAP) Pulse Ox O2 O2 Flow FiO2 Time Delivery Rate 09/06/18 97.5 71 20 119/61 97 Room Air 10:55 (80) 09/04/18 3 10:29 Intake and Output 09/05/18 09/05/18 09/06/18 1515:00 23:00 07:00 IntakeIntake Total 960 ml 600 ml BalanceBalance 960 ml 600 ml Exam General: Patient currently lying in bed in no acute distress Chest: Nontender Lungs: Clear to auscultation bilaterally no crackles rales or wheezing Heart: Normal S1-S2, Regular rhythm and rate. No murmur, S3, or S4 Abdomen: Soft , nontender, nondistended , bowel sounds are present. No guarding no rebound tenderness Extremities: Normal to inspection, no edema no cyanosis Results Results 24hrs Laboratory Tests Test 09/05/18 12:59 09/05/18 17:01 09/05/18 20:23 09/05/18 21:42 Bedside Glucose 170 238 H 429 *H Glucose Level 111 # Test 09/06/18 02:17 09/06/18 05:27 09/06/18 07:57 Bedside Glucose 195 171 Sodium Level 138 Potassium Level 4.9 Chloride Level 104 Carbon Dioxide Level 25 Anion Gap 9 Blood Urea Nitrogen 35 H Creatinine 0.89 Est Glomerular > 60 Filtrat Rate mL/min Glucose Level 131 Calcium Level 9.8 Phosphorus Level 3.4 Magnesium Level 1.9 Medications Medication Current Medications Nitroglycerin (Nitroglycerin (Sl Tab) 0.4 Mg) 1 tab Q5M UP TO 3 DOSES PRN SL .CHEST PAIN Last administered on 09/05/18at 10:26; Admin Dose 1 TAB; Start 09/04/18 at 10:00 IV Flush (NS 3 ml) 3 ml PER PROTOCOL IV ; Start 09/04/18 at 13:30 Ondansetron HCl (Zofran Inj) 4 mg Q6H PRN IV NAUSEA/VOMITING; Start 09/04/18 at 13:30 Aspirin (Aspirin) 81 mg DAILY PO Last administered on 09/06/18at 08:12; Admin Dose 81 MG; Start 09/05/18 at 09:00 Acetaminophen (Tylenol Tab) 650 mg Q6H PRN PO .PAIN 1-3 OR TEMP; Start 09/04/18 at 13:30 Acetaminophen/ Hydrocodone Bitart ([place] (5/325)) 1 tab Q6H PRN PO .PAIN 4-6; Start 09/04/18 at 13:30 Heparin Sodium (Porcine) (Heparin (5000 Units/1ml)) 5,000 unit Q8 SC Last administered on 09/06/18at 06:09; Admin Dose 5,000 UNIT; Start 09/04/18 at 14:00 Lorazepam (Ativan) 1 mg Q2H PRN IV Anxiety; Start 09/04/18 at 14:00 Atorvastatin Calcium (Lipitor) 80 mg QHS PO Last administered on 09/05/18at 20:25; Admin Dose 80 MG; Start 09/04/18 at 21:00 Escitalopram Oxalate (Lexapro) 5 mg DAILY PO Last administered on 09/06/18 08:12; Admin Dose 5 MG; Start 09/05/18 at 09:00 Gabapentin (Neurontin) 800 mg TID PO Last administered on 09/06/18 08:12; Admin Dose 800 MG; Start 09/04/18 at 21:00 Metoprolol Succinate (Toprol Xl) 50 mg DAILY PO Last administered on 09/06/18 08:13; Admin Dose 50 MG; Start 09/05/18 at 09:00 Insulin Glargine (Lantus) 13 units DAILY@2000 SC Last administered on 09/05/18at 20:29; Admin Dose 13 UNITS; Start 09/04/18 at 20:00 Insulin Aspart (Novolog Insulin Pen) 4 unit WITH MEALS SC Last administered on 09/06/18 08:19; Admin Dose 4 UNIT; Start 09/04/18 at 18:00 Insulin Aspart (Novolog Insulin Pen) NOVOLOG *MILD* ALGORITHM WITH MEALS BEDTIME SC Last administered on 09/06/18 08:19; Admin Dose 1 UNIT; Start 09/04/18 at 18:00 Miscellaneous Information 1 ea NOTE XX ; Start 09/04/18 at 14:00 Glucose (Glutose) 15 gm Q15M PRN PO DECREASED GLUCOSE; Start 09/04/18 at 14:00 Glucose (Glutose) 22.5 gm Q15M PRN PO DECREASED GLUCOSE; Start 09/04/18 at 14:00 Dextrose (D50w Syringe) 25 ml Q15M PRN IV DECREASED GLUCOSE; Start 09/04/18 at 14:00 Dextrose (D50w Syringe) 50 ml Q15M PRN IV DECREASED GLUCOSE; Start 09/04/18 at 14:00 Glucagon (Glucagen) 1 mg Q15M PRN IM DECREASED GLUCOSE; Start 09/04/18 at 14:00 Glucose (Glutose) 15 gm Q15M PRN BUCCAL DECREASED GLUCOSE; Start 09/04/18 at 14:00 Ranolazine (Ranexa) 1,000 mg BID PO Last administered on 09/06/18at 08:12; Admin Dose 1,000 MG; Start 09/05/18 at 09:00 Docusate Sodium (Colace) 100 mg BID PO Last administered on 09/06/18 08:12; Admin Dose 100 MG; Start 09/05/18 at 09:00 Famotidine (Pepcid) 20 mg BID PO Last administered on 09/05/18at 20:25; Admin Dose 20 MG; Start 09/05/18 at 11:00 QUYNH REEVES MD Sep 06, 2018 12:21
[2018-09-06] MEDS ORDERED: RANO10002 PO (12:32)
[2018-09-06] MEDS ORDERED: INSU100I33 SC (12:32)
[2018-09-06] MEDS ORDERED: FAMO20TA18 PO (12:32)
--- NOTE | 2018-09-06 12:47 | PDOCDIS ---
Discharge Instructions DIAGNOSIS Discharge Diagnosis 1. Acute chest pain-resolved 2. HTN 3. Diabetes mellitus type II. 4. Dyslipidemia 5. CAD, status post PCI in 2014. 6. Acute kidney injury- resolved CONDITION [id number] Patient Condition: [id number] Stable HOME CARE INSTRUCTIONS: [id number] Diet Instructions: [id number] Low Fat /Cholesterol ACTIVITY: [id number] Activity Restrictions: [id number] No Restrictions FOLLOW UP/APPOINTMENTS Follow-up Plan 1. Follow up with your primary care physician in 1- 2 weeks 2. Continue taking all medications as prescribed. Your Ranexa was increased to 1000mg twice a day 3. Your Lisinopril was held during your hospital stay since your blood pressure was well controlled on Metoprolol 4. Take Pepcid twice a day for 8 weeks then decrease to daily 5. If experiencing any concerning symptoms, please go to the nearest emergency department. QUYNH REEVES MD Sep 06, 2018 12:46
--- NOTE | 2018-09-06 13:48 | CONS ---
Assessment/Plan Assessment/Plan Hospital Course (Demo Recall) IMPRESSION: 1. Chest pain. Assess for acute coronary syndrome.-neg trop x 3. lexiscan with no ischemia/only scar. NL EF. NL EF by echo this admit 2. Abnormal electrocardiogram. Assess for acute coronary syndrome. 3. Hypertension. 4. Dyslipidemia. 5. History of percutaneous transluminal coronary angioplasty and stent placement. 6. Remote history of tobacco. 7. Renal failure. Recc: -Tele -Continue asa/BB/statin/ranexa -ok for d/c planning from cardiac standpoint Consultation Date/Type/Reason Admit Date/Time Sep 06, 2018 at 07:39 Initial Consult Date 09/04/18 Type of Consult Cardiology Reason for Consultation chest pain Requesting Provider: FIORELLA HENRIQUEZ NP Date/Time of Note DATE: 09/06/18 TIME: 13:46 Exam/Review of Systems Vital Signs Vitals Vital Signs Date Temp Pulse Resp B/P (MAP) Pulse Ox O2 O2 Flow FiO2 Time Delivery Rate 09/06/18 97.5 71 20 119/61 97 Room Air 10:55 (80) 09/04/18 3 10:29 Intake and Output 09/05/18 09/05/18 09/06/18 1515:00 23:00 07:00 IntakeIntake Total 960 ml 600 ml BalanceBalance 960 ml 600 ml Exam Exam Review of Systems: CONSTITUTIONAL: No fevers, chills. PULMONARY: No sob CARDIOVASCULAR: No chest pain/palpitations GASTROINTESTINAL: No nausea/vomiting. GENITOURINARY: No hematuria/dysuria. MUSCULOSKELETAL: No myagias/arthalgias. PSYCHIATRIC: The patient denies depression. NEUROLOGIC: No weakness Constitutional: alert, oriented Psych: no complaints Head: normocephalic ENMT: mucosa pink and moist Neck: supple, jvd (9 cm water) Respiratory: clear to auscultation Cardiovascular: regular rate and rhythm Gastrointestinal: soft, non-tender Musculoskeletal: muscle tone (normal) Extremities: edema (none) Neurological: other (No focal deficits) Labs Result Diagram: 09/05/18 0538 09/06/18 0527 Results 24hrs Laboratory Tests Test 09/05/18 17:01 09/05/18 20:23 09/05/18 21:42 09/06/18 02:17 Bedside Glucose 238 H 429 *H 195 Glucose Level 111 # Test 09/06/18 05:27 09/06/18 07:57 09/06/18 13:01 Sodium Level 138 Potassium Level 4.9 Chloride Level 104 Carbon Dioxide Level 25 Anion Gap 9 Blood Urea Nitrogen 35 H Creatinine 0.89 Est Glomerular > 60 Filtrat Rate mL/min Glucose Level 131 Calcium Level 9.8 Phosphorus Level 3.4 Magnesium Level 1.9 Bedside Glucose 171 244 H Medications Medications Current Medications Nitroglycerin (Nitroglycerin (Sl Tab) 0.4 Mg) 1 tab Q5M UP TO 3 DOSES PRN SL .CHEST PAIN Last administered on 09/05/18at 10:26; Admin Dose 1 TAB; Start 09/04/18 at 10:00 IV Flush (NS 3 ml) 3 ml PER PROTOCOL IV ; Start 09/04/18 at 13:30 Ondansetron HCl (Zofran Inj) 4 mg Q6H PRN IV NAUSEA/VOMITING; Start 09/04/18 at 13:30 Aspirin (Aspirin) 81 mg DAILY PO Last administered on 09/06/18at 08:12; Admin Dose 81 MG; Start 09/05/18 at 09:00 Acetaminophen (Tylenol Tab) 650 mg Q6H PRN PO .PAIN 1-3 OR TEMP; Start 09/04/18 at 13:30 Acetaminophen/ Hydrocodone Bitart ([place] (5/325)) 1 tab Q6H PRN PO .PAIN 4-6; Start 09/04/18 at 13:30 Heparin Sodium (Porcine) (Heparin (5000 Units/1ml)) 5,000 unit Q8 SC Last administered on 09/06/18at 06:09; Admin Dose 5,000 UNIT; Start 09/04/18 at 14:00 Lorazepam (Ativan) 1 mg Q2H PRN IV Anxiety; Start 09/04/18 at 14:00 Atorvastatin Calcium (Lipitor) 80 mg QHS PO Last administered on 09/05/18at 20:25; Admin Dose 80 MG; Start 09/04/18 at 21:00 Escitalopram Oxalate (Lexapro) 5 mg DAILY PO Last administered on 09/06/18at 08:12; Admin Dose 5 MG; Start 09/05/18 at 09:00 Gabapentin (Neurontin) 800 mg TID PO Last administered on 09/06/18at 08:12; Admin Dose 800 MG; Start 09/04/18 at 21:00 Metoprolol Succinate (Toprol Xl) 50 mg DAILY PO Last administered on 09/06/18 08:13; Admin Dose 50 MG; Start 09/05/18 at 09:00 Insulin Glargine (Lantus) 13 units DAILY@2000 SC Last administered on 09/05/18at 20:29; Admin Dose 13 UNITS; Start 09/04/18 at 20:00 Insulin Aspart (Novolog Insulin Pen) 4 unit WITH MEALS SC Last administered on 09/06/18 13:06; Admin Dose 4 UNIT; Start 09/04/18 at 18:00 Insulin Aspart (Novolog Insulin Pen) NOVOLOG *MILD* ALGORITHM WITH MEALS BEDTIME SC Last administered on 09/06/18 13:06; Admin Dose 3 UNIT; Start 09/04/18 at 18:00 Miscellaneous Information 1 ea NOTE XX ; Start 09/04/18 at 14:00 Glucose (Glutose) 15 gm Q15M PRN PO DECREASED GLUCOSE; Start 09/04/18 at 14:00 Glucose (Glutose) 22.5 gm Q15M PRN PO DECREASED GLUCOSE; Start 09/04/18 at 14:00 Dextrose (D50w Syringe) 25 ml Q15M PRN IV DECREASED GLUCOSE; Start 09/04/18 at 14:00 Dextrose (D50w Syringe) 50 ml Q15M PRN IV DECREASED GLUCOSE; Start 09/04/18 at 14:00 Glucagon (Glucagen) 1 mg Q15M PRN IM DECREASED GLUCOSE; Start 09/04/18 at 14:00 Glucose (Glutose) 15 gm Q15M PRN BUCCAL DECREASED GLUCOSE; Start 09/04/18 at 14:00 Ranolazine (Ranexa) 1,000 mg BID PO Last administered on 09/06/18at 08:12; Admin Dose 1,000 MG; Start 09/05/18 at 09:00 Docusate Sodium (Colace) 100 mg BID PO Last administered on 09/06/18at 08:12; Admin Dose 100 MG; Start 09/05/18 at 09:00 Famotidine (Pepcid) 20 mg BID PO Last administered on 09/06/18at 09:00; Admin Dose 20 MG; Start 09/05/18 at 11:00 DARRIUS NIELSEN 13, 2019 13:48
--- NOTE | 2018-09-06 16:13 | DS ---
Date/Time of Note Date/Time of Note DATE: 09/06/18 TIME: 16:10 Discharge Summary Admission/Discharge Info Admit Date/Time Sep 06, 2018 at 07:39 Discharge Date/Time 09/06/18 Discharge Diagnosis 1. Acute chest pain-resolved 2. HTN 3. Diabetes mellitus type II. 4. Dyslipidemia 5. CAD, status post PCI in 2014. 6. Acute kidney injury- resolved Patient Condition: Stable Consults Cardiology- Dr. Castillo Nephrology- Dr. Ramon Procedures PROCEDURE: Lexiscan myocardial perfusion study CLINICAL INDICATION: 63 -year-old patient complaining of chest pain. TECHNIQUE: Lexiscan 0.4 mg intravenously separate acquisition gated myocardial perfusion SPECT using Tc 99m Myoview 27.4 mCi intravenously at stress and Tc-99m Myoview, 9.5 mCi intravenously at rest was performed using the rest/stress sequence. Poststress Myoview SPECT images were obtained in the supine position. COMPARISON: No prior studies. FINDINGS: Perfusion images reveal a small size mild in degree predominantly nonreversible perfusion abnormality in the inferolateral wall. Lexiscan post stress gated SPECT images demonstrate no wall motion abnormalities. IMPRESSION: 1. The type and distribution of the scintigraphic abnormalities are most consistent with a small size predominantly nonreversible perfusion defect in the inferolateral wall. 2. No wall motion abnormalities. 3. The left ventricle ejection fraction at stress is 70%. A call report was made to Dr. Castillo at 01:00 p.m. on September 05, 2018. RPTAT: HH .Kamryn Aleman MD, Date Time Electronically viewed and signed by .Kamryn Aleman MD, MD on 09/05/2018 13:01 Hx of Present Illness Reason for admission: Chest pain. Consultants 1. Pankaj Castillo MD, cardiology. 2. Aydin Ramon DO, nephrology. This is a 63-year-old male with past medical history of hypertension, hyperlipidemia, diabetes mellitus type II, and CAD status post coronary artery stenting in 2014. The patient came to the emergency room with chief complaint of chest pain. The patient verbalized that he has been having chest pain since 09/03/2018. The patient verbalized that the chest pain was coming on and off. He verbalized the chest pain is sharp. He verbalized associated nausea. Denied any vomiting or diaphoresis. Denied any dyspnea. The patient denied any dizziness. He denied any fevers or chills. The patient follows up with a clerical proofreader as outpatient and he verbalized that he has been compliant with all his medications. In the emergency room, the patient was noticed to have a acute kidney injury with a BUN and creatinine of 47 and 3.06 respectively. The patient's troponins were negative. The patient's chest x-ray was negative for any acute cardiopulmonary findings. The patient was treated with a single dose of aspirin along with nitroglycerin transdermal in the emergency room. Hospital Course Patient was admitted for evaluation of acute chest pain and Cardiology was consulted. Patient underwent a cardiac stress test that revealed scarring but no acute ischemic event. Patient was also noted with acute renal failure at time of admission and Nephrology was consulted. Patients renal function returned to baseline after given fluids. Patient was also started on H2 francesca and chest discomfort improved. Patient was able to tolerate PO intake and ambulated without any issues. Patient was discharged home in stable condition. Home Meds Active Scripts Famotidine* (Famotidine*) 20 Mg Tablet, 20 MG PO BID for 30 Days, #60 TAB 1 Refill Prov:QUYNH REEVES MD 09/06/18 Ranolazine* (Ranexa*) 1,000 Mg Tab.sr.12h, 1000 MG PO DAILY for 30 Days, #60 TAB 1 Refill Prov:QUYNH REEVES MD 09/06/18 Insulin Glargine,Hum.rec.anlog (Basaglar Kwikpen U-100) 100 Unit/1 Ml Insuln.pen, 14 UNIT SC QHS for 30 Days, #10 EA 1 Refill Prov:QUYNH REEVES MD 09/06/18 Reported Medications Aspirin* (Aspirin* Chew) 81 Mg Tab.chew, 81 MG PO DAILY, TAB.CHEW 09/04/18 Atorvastatin* (Atorvastatin*) 80 Mg Tablet, 80 MG PO QHS, #30 TAB 09/04/18 Metoprolol Succinate* (Toprol XL*) 50 Mg Tab.er.24h, 50 MG PO DAILY, #30 TAB 09/04/18 Metformin Hcl* (Metformin Hcl*) 500 Mg Tablet, 500 MG PO WITH BREAKFAST DINNE, #60 TAB 09/04/18 Gabapentin* (Gabapentin*) 800 Mg Tablet, 800 MG PO TID, #90 TAB 09/04/18 Escitalopram Oxalate* (Lexapro*) 5 Mg Tablet, 5 MG PO DAILY, #30 TAB 09/04/18 Discontinued Reported Medications Lisinopril* (Lisinopril*) 10 Mg Tablet, 10 MG PO DAILY, #30 TAB 09/04/18 Aspirin* (Aspirin* EC) 81 Mg Tablet.dr, 81 MG PO DAILY, TAB 09/04/18 Follow-up Plan 1. Follow up with your primary care physician in 1- 2 weeks 2. Continue taking all medications as prescribed. Your Ranexa was increased to 1000mg twice a day 3. Your Lisinopril was held during your hospital stay since your blood pressure was well controlled on Metoprolol 4. Take Pepcid twice a day for 8 weeks then decrease to daily 5. If experiencing any concerning symptoms, please go to the nearest emergency department. Primary Care Provider Care Physician No Primary Time spent on discharge: > 30 minutes Pending Labs Laboratory Tests Test 09/05/18 17:01 09/05/18 20:23 09/05/18 21:42 09/06/18 02:17 Bedside 238 429 195 Glucose mg/dL (70-220) mg/dL (70-220) mg/dL (70-220) Glucose Level 111 mg/dl (70-220) Test 09/06/18 05:27 09/06/18 07:57 09/06/18 13:01 Sodium Level 138 mmol/L (135-144 ) Potassium 4.9 Level mmol/L (3.5-5.1 ) Chloride Level 104 mmol/L (97-110) Carbon Dioxide 25 Level mmol/L (21-31) Anion Gap 9 (5-13) Blood Urea 35 mg/dl (7-20) Nitrogen Creatinine 0.89 mg/dl (0.61-1.2 4) Est Glomerular > 60 Filtrat mL/min (>60) Rate mL/min Glucose Level 131 mg/dl (70-220) Calcium Level 9.8 mg/dl (8.4-10.2 ) Phosphorus 3.4 Level mg/dl (2.5-4.9) Magnesium 1.9 Level mg/dl (1.7-2.5) Bedside 171 244 Glucose mg/dL (70-220) mg/dL (70-220) QUYNH REEVES MD Sep 06, 2018 16:13
== END 2018-09-06 16:51 | disposition home or self-care (01) | DRG 313 ==
LOC: E/R 09:50 → 6WM 11:32 → OBSVTOIN 09-06 07:39
PROVIDERS: ADMIT Internal Medicine; ATTEND Internal Medicine
DX: R07.9 Chest pain, unspecified (principal); N17.9 Acute kidney failure, unspecified; I25.2 Old myocardial infarction; R06.02 Shortness of breath; Z95.5 Presence of coronary angioplasty implant and graft; E11.9 Type 2 diabetes mellitus without complications; E78.5 Hyperlipidemia, unspecified; I10 Essential (primary) hypertension; Z59.0 Homelessness; Z87.891 Personal history of nicotine dependence; E87.5 Hyperkalemia
CPT/HCPCS: 36415; 71045; 76775; 78452; 80048; 80053; 80061; 82550; 82553; 82947; 82962; 83036; 83735; 83880; 84100; 84484; 85025; 87081; 93005; 93017; 93306; G0378; A9500; A9505; J1644; J1815; J2785; J7042